=== PATIENT | male | born 1975 | race Caucasian/White ===

== ENCOUNTER 2016-09-03 18:03 | Emergency (ER) | payer OTHER ==
[2016-09-03 18:24] LABS: MANUAL DIFF NEEDED? NO
[2016-09-03 18:35] LABS: BASO% 0.1 % (0.0-0.8); EOS# 0.16 X1000 (0.0-0.7); EOS% 1.7 % (0.0-10.0); HEMATOCRIT 46.5 % (42.0-52.0); HEMOGLOBIN 16.3 g/dL (14.0-18.0); IMM GRAN# 0.02 X1000 (0.0-0.04); IMM GRAN% 0.2 % (0.0-0.5); LYMPH# 3.58 X1000 (1.2-3.4); MCH 31.9 PG (27-31); MCHC 35.1 g/dL (33-37); MONO% 7.4 % (1.7-9.3); MPV 10.3 FL (7.4-10.4); NEUT% 52.6 % (42.2-75.2); PLT 180 X1000 (130-400); RBC 5.11 XMIL (4.7-6.1)
[2016-09-03 18:53] LABS: AGAP 13; ALBUMIN 4.5 g/dL (3.5-5.0); ALKALINE PHOSPHATASE 56 U/L (32-122); BUN 16 mg/dL (8-22); CALCIUM 8.9 mg/dL (8.8-10.2); CHLORIDE 101 mmol/L (98-107); CK PROFILE 117 U/L (24-204); COSMO 278; GOT 25 U/L (10-34); GPT 33 U/L (10-44); POTASSIUM 3.9 mmol/L (3.5-5.1); SODIUM 139 mmol/L (136-145); TCO2 25 mmol/L (25-35); TOTAL BILIRUBIN 0.41 mg/dL (0.20-1.00); TOTAL PROTEIN 7.5 g/dL (6.3-8.3)
[2016-09-03 19:30] LABS: PTT 23.7 Seconds (22.0-36.0)
[2016-09-03 19:31] LABS: PROTIME 10.2 Seconds (9.2-11.7)
[2016-09-03] MEDS ORDERED: DECADRON IM ONE (20:43)
[2016-09-03] MEDS ORDERED: TORADOL IV ONE (20:43)
[2016-09-03 20:44] VITALS: BP 137/88
--- NOTE | 2016-09-03 20:44 | PROVIDER DOCUMENTATION ---
HPI-Musculoskeletal Pain/Inj - GENERAL Chief Complaint: Numbness Stated Complaint: LT ARM NUMBNESS/PAIN, NECK PAIN, CP Time Seen by Provider: 09/03/16 20:27 Source: patient - HX OF PRESENT ILLNESS-MUSKULOSKELTAL Nature of Presenting Problem: Pt is a 41 yom who presents to ER with CC of L arm stiffness/numbness that has been intermittent (for an unspecified length of time) but became significatnyl worse tonight. Pt reports that x5 years he had rotator cuff surgery on L shoulder and has "not since been right." Pt reports the pain is in his L shoulder and radiates down to his hand and describes the pain as "stiff/numb." Pt also reports that he had minor chest pain earlier today, but believes that it was from the stress of his arm pain. Pt denies chest pain now. Quality of Pain: reports: other (stiff/numb) Severity in ED: moderate Onset/Duration: unsure Timing: still present, getting worse Any recent injury?: No - UPPER EXTREMITY PAIN/INJURY Extremities Pain Location: shoulder: left, arm: left, elbow: left, forearm: left , wrist: left, hand: left Context / Method of Injury: reports: unknown Associated Symptoms: reports: numbness in upper ext, sensory/motor loss. denies : muscle spasms, tingling in upper ext, weakness in upper ext Review of Systems - Adult - REVIEW OF SYSTEMS - ADULT Constitutional: denies: chills, fever, fatique, night sweats, weight gain, weight loss Eyes: reports: no symptoms reported Ears, Nose, Mouth & Throat: reports: no symptoms reported Cardiovascular: denies: chest pain, edema, heart murmur, irregular heart rate, orthopnea, palpitations, poor circulation, PND, syncope Respiratory: denies: chronic cough, cough, dyspnea on exertion, shortness of breath, wheezing Gastrointestinal: reports: no symptoms reported Genitourinary: reports: no symptoms reported Musculoskeletal: reports: joint pain (L shoulder), muscle weakness. denies: bone pain, back pain, frequent leg cramps, joint swelling, muscle aches, neck pain Integumentary: reports: no symptoms reported Neurological: reports: no symptoms reported Psychiatric: reports: no symptoms reported Endocrine: reports: no symptoms reported Hematologic/Lymphatic: reports: no symptoms reported Allergic/Immunologic: reports: no symptoms reported All Other Systems: Reviewed and Negative Past History - Adult - PAST MEDICAL HISTORY-ADULT Review of Records: reports: Nursing Assessment Review, Medications Reviewed - IMMUNIZATION STATUS Childhood Immunizations: See Nurse Assessment Flu Vaccine: See Nurse Assessment Physical Exam-Injury Related - Physical Exam-Injury Related Initial Vital Signs Reviewed: Yes General Appearance: appears well, alert, mild distress, anxious. negative: no apparent distress Neck: non-tender, supple, C-spine tenderness, pain on movement. negative: full range of motion, decresed ROM Respiratory: chest non-tender, lungs clear, normal breath sounds. negative: respiratory distress, decreased breath sounds, accessory muscle use, rhonchi, wheezing Cardiovascular: normal peripheral pulses, regular rate, rhythm. negative: bradycardia, tachycardia, irregularly irregular Back Exam: no CVA tenderness, no vertebral tenderness. negative: CVA tenderness , decreased range of motion Extremity: tenderness (L shoulder), other (mildly decreased ROM). negative: normal range of motion, non-tender, normal gait, erythema, inflammation, swelling Integumentary: normal color, warm/dry. negative: diaphoresis, swelling, tenderness, warm, abrasion, contusion(s), laceration Neurologic: grossly normal, no motor/sensory deficits. negative: motor weakness , sensory deficit Psych/Mental Status: normal thought content, normal thought process, oriented x 3, anxious. negative: normal mood/affect Progress - PLAN OF CARE/RESULTS Progress/Plan/Lab Results: Vital Signs - 24 hr 09/03/16 09/03/16 18:07 20:44 Temperature 98.1 F Pulse Rate 58 L 63 Respiratory 18 20 Rate Blood Pressure 148/99 137/88 O2 Sat by Pulse 100 98 Oximetry Orders Category Date Time Status CBC WITH ELECTRONIC DIFF [HEME] Stat Lab 09/03/16 18:20 Completed CK PROFILE [SP CHEM] Stat Lab 09/03/16 18:20 Completed CK PROFILE [SP CHEM] Stat Lab 09/03/16 20:41 Received COMPREHENSIVE METABOLIC PANEL [CHEM] Stat Lab 09/03/16 18:20 Completed MAGNESIUM [CHEM] Stat Lab 09/03/16 18:20 Completed PROTIME WITH INR [COAG] Stat Lab 09/03/16 18:20 Completed PTT [COAG] Stat Lab 09/03/16 18:20 Completed TROPONIN T Stat Lab 09/03/16 18:20 Completed TROPONIN T Stat Lab 09/03/16 20:41 Received Dexamethasone [Decadron] Med 09/03/16 20:43 Discontinued 10 mg IM NOW ONE Ketorolac [Toradol] Med 09/03/16 20:43 Discontinued 30 mg IV NOW ONE Ketorolac [Toradol] Med 09/03/16 20:45 Discontinued 60 mg IM NOW ONE EKG [EKG] Stat Ther 09/03/16 18:10 Ordered EKG [EKG] Stat Ther 09/03/16 20:26 Ordered Laboratory Tests 09/03/16 09/03/16 09/03/16 18:20 18:20 18:20 WBC 9.42 RBC 5.11 Hgb 16.3 Hct 46.5 MCV 91.0 MCH 31.9 H MCHC 35.1 RDW Std Deviation 12.4 Plt Count 180 MPV 10.3 Immature Gran % (Auto) 0.2 Neut % (Auto) 52.6 Lymph % (Auto) 38.0 O'Brien % (Auto) 7.4 Eos % (Auto) 1.7 Baso % (Auto) 0.1 Immature Gran # (Auto) 0.02 Neut # (Auto) 4.95 Lymph # (Auto) 3.58 H O'Brien # (Auto) 0.70 H Eos # (Auto) 0.16 Baso # (Auto) 0.01 PT 10.2 INR 1.00 PTT (Actin FS) 23.7 Sodium 139 Potassium 3.9 Chloride 101 Carbon Dioxide 25 Anion Gap 13 BUN 16 Creatinine 1.2 Estimated GFR/1.73 m2 > 60 BUN/Creatinine Ratio 13 Glucose 87 Calculated Osmolality 278 Calcium 8.9 Magnesium 2.0 Total Bilirubin 0.41 AST 25 ALT 33 Alkaline Phosphatase 56 Creatine Kinase 117 Troponin T Total Protein 7.5 Albumin 4.5 Globulin 3.0 Albumin/Globulin Ratio 1.5 09/03/16 18:20 WBC RBC Hgb Hct MCV MCH MCHC RDW Std Deviation Plt Count MPV Immature Gran % (Auto) Neut % (Auto) Lymph % (Auto) O'Brien % (Auto) Eos % (Auto) Baso % (Auto) Immature Gran # (Auto) Neut # (Auto) Lymph # (Auto) O'Brien # (Auto) Eos # (Auto) Baso # (Auto) PT INR PTT (Actin FS) Sodium Potassium Chloride Carbon Dioxide Anion Gap BUN Creatinine Estimated GFR/1.73 m2 BUN/Creatinine Ratio Glucose Calculated Osmolality Calcium Magnesium Total Bilirubin AST ALT Alkaline Phosphatase Creatine Kinase Troponin T < 0.010 Total Protein Albumin Globulin Albumin/Globulin Ratio - EKG 1 Time of EKG reading by physician:: 20:31 EKG Read and Signed by:: Kenneth Schwarz EKG Interpretation (*Must complete 3 of following elements*): Abnormal ( Incomplete RBBB; Minimal voltage criteria for LVH, may be normal variant; ST elevation, consider early repolarization, pericarditis, or injury) Rate: 62 Rhythm: Undetermined rhythm Departure - Departure Time of Disposition Order: 20:51 DIAGNOSIS: Pain of left upper extremity, Neuropathy, Atypical chest pain Disposition: HOME 01 Certified Medical Emergency: Emergent Condition: Stable Additional Instructions: ED Follow Up Instructions: You have been treated by a care provider in the Emergency Department. These instructions are being provided to you so you can have an understanding of how to care for yourself upon discharge. Upon discharge from the Emergency Department, you are responsible for making arrangements for follow-up care by a physician of your choice. Take all prescribed medications as directed. Return to the Emergency Department immediately for any new or worsening symptoms. You may call the Physician Referral phone number at [phone] to obtain a list of Physicians who are taking new patients. Prescriptions: Methocarbamol [Robaxin-750] 750 mg PO TID #30 tablet Tramadol [Ultram] 50 mg PO TID #30 tablet Referrals: Shon Crawley [Primary Care Provider] - Attestation - Scribe Verification/Attestation Scribe:: Yves Madden Acting as Scribe for:: Kenneth Schwarz Scribe documention review:: This chart was documented by a scribe and accurately reflects the service the provider performed and the decisions made by the provider.
[2016-09-03] MEDS ORDERED: TORADOL IM ONE (20:45)
--- NOTE | 2016-09-06 10:55 | EKG Report ---
Test Performed on : 09/03/2016 8:31:58 PM Test Reason : REPEAT CARDIAC Blood Pressure : / mmHG Vent. Rate : 062 BPM Atrial Rate : 060 BPM P-R Int : 000 ms QRS Dur : 098 ms QT Int : 418 ms P-R-T Axes : -04 -28 -16 degrees QTc Int : 424 ms Poor data quality, interpretation may be adversely affected Undetermined rhythm Incomplete right bundle branch block Minimal voltage criteria for LVH, may be normal variant ST elevation, consider early repolarization, pericarditis, or injury Abnormal ECG When compared with ECG of 03-SEP-2016 18:13, (Unconfirmed) Current undetermined rhythm precludes rhythm comparison, needs review Unconfirmed Result
--- NOTE | 2016-09-06 10:59 | EKG Report ---
Test Performed on : 09/03/2016 6:13:17 PM Test Reason : left arm numbness/pain Blood Pressure : / mmHG Vent. Rate : 059 BPM Atrial Rate : 059 BPM P-R Int : 152 ms QRS Dur : 120 ms QT Int : 432 ms P-R-T Axes : -19 -26 004 degrees QTc Int : 427 ms Sinus bradycardia. Left ventricular hypertrophy with QRS widening Abnormal ECG When compared with ECG of 13-JUL-2012 19:07, No significant change was found Unconfirmed Result
== END 2016-09-03 21:35 | disposition home or self-care (01) ==
LOC: ED 18:03
DX: G62.9 Polyneuropathy, unspecified (principal); M79.622 Pain in left upper arm; R07.89 Other chest pain; R20.0 Anesthesia of skin; R94.31 Abnormal electrocardiogram [ECG] [EKG]; M25.512 Pain in left shoulder; M62.81 Muscle weakness (generalized)
CPT/HCPCS: 80053; 82550; 83735; 84484; 85025; 85610; 85730; 93005; 96372; J1885